=== PATIENT | male | born 1955 | race Caucasian/White ===

== ENCOUNTER 2018-06-27 07:18 | Observation (INO) ==
[2018-06-27] MEDS ORDERED: 0.9 % Sodium Chloride 1,000 ML IVC ONE (07:31)
[2018-06-27] MEDS ORDERED: *HR* FentaNYL (PF) 100 MCG/2 ML VIAL IVP ONE (07:31)
[2018-06-27] MEDS ORDERED: Ondansetron 4 MG/2 ML VIAL IVP ONE (07:31)
[2018-06-27] MEDS ORDERED: Isovue-370 500 ML INFUS..BTL IV ONE (07:31)
--- NOTE | 2018-06-27 07:36 | Emergency Department Note ---
Disposition Clinical Impression: Ileus, unspecified Disposition: Admitted As Inpatient Condition: Fair Referrals: NONE,PCP [Primary Care Provider] - Forms: ED Satisfaction Letter, Work/School Release Time of Disposition: 09:48 Abdominal Pain HPI - General Chief Complaint: ED Abdominal Pain Stated Complaint: Abd pain Time Seen by Provider: 06/27/18 07:25 Source: patient Mode of arrival: ambulatory Limitations: no limitations Nursing Notes Reviewed: Yes Vital Signs Reviewed: Yes - History of Present Illness HPI Narrative: Nontoxic-appearing 63-year-old male presents for evaluation of periumbilical pain that has began to radiate into the right lower quadrant, nausea, and vomiting. Symptoms began yesterday evening at approximately 8:00 PM. He denies any known alleviating factors. He states the pain is worse with certain move ments. He describes this pain as a cramping-type pain and states that it is intermittent in nature. It is worsened with certain movements. He states that although he has passed 2 normal bowel movements since symptom onset, he is unable to pass flatus. He states that it feels as if his symptoms would improve if he were able to pass gas. He denies any associated fever or chills. He denies any diarrhea. He denies any hematemesis or melena. He states that he has noticed some bright red blood per rectum intermittently for the past 2 days but does state a history of hemorrhoids. He denies any urinary symptoms. He denies any known sick contacts or recent foreign travel. His only abdominal surgical history includes a cholecystectomy performed approximately 10 years ago. Pt Subjective Complaint: abdominal pain Onset (ago): day(s) (Yesterday evening at approximately 8:00 PM) Consistency: intermittent Location: periumbilical Pain Severity: severe Pain Scale: 10 Quality: cramping Radiation: RLQ Improves with: nothing Worsens with: movement Associated symptoms: Reports: nausea, vomiting. Denies: diarrhea, fever, chills, constipation, dysuria, hematemesis, hematuria - Related Data Home Medications Medication Instructions Recorded Confirmed Alfuzosin HCl [Uroxatral] 10 mg PO ONCE 01/02/18 01/02/18 Alogliptin Benzoate [Alogliptin] 25 mg PO ONCE 01/02/18 01/02/18 Amlodipine Besylate 2.5 mg PO ONCE 01/02/18 01/02/18 Aspirin 325 mg PO DAILY 01/02/18 01/02/18 Atorvastatin Calcium [Lipitor] 20 mg PO ONCE 01/02/18 01/02/18 Enalapril Maleate [Vasotec] 10 mg PO ONCE 01/02/18 01/02/18 Insulin Glargine,Hum.rec.anlog 100 unit SQ BID 01/02/18 01/02/18 [Lantus Solostar] Montelukast Sodium [Singulair] 4 mg PO ONCE 01/02/18 01/02/18 Tamsulosin HCl [Flomax] 0.4 mg PO ONCE 01/02/18 01/02/18 glipiZIDE [Glipizide ER] 10 mg PO BID 01/02/18 01/02/18 raNITIdine HCl [Ranitidine HCl] 300 mg PO BID 01/02/18 01/02/18 Previous Rx's Medication Instructions Recorded Docusate [Colace] 100 mg PO BID #60 capsule 01/02/18 HYDROcodone/Acet 5/325 mg [[place] 1 tab PO Q4H PRN 4 Days #15 tab 01/02/18 5-325 mg] Allergies Allergy/AdvReac Type Severity Reaction Status Date / Time No Known Allergies Allergy Verified 01/02/18 10:38 All systems ED: reviewed and negative except as stated. Review of Systems: As Per HPI Constitutional: Denies: fever, chills, weakness, weight change Eyes: Denies: eye pain, eye discharge, vision change ENT ED: Denies: ear pain, throat pain, dental pain, hearing loss, epistaxis, congestion, dysphagia Cardiovascular: Denies: chest pain, palpitations, dyspnea on exertion, edema, syncope Respiratory: Denies: cough, dyspnea, wheezes, hemoptysis, stridor Gastrointestinal: Reports: as per HPI, abdominal pain, nausea, vomiting. Denies: diarrhea, constipation, hematemesis, melena, hematochezia Genitourinary: Denies: urgency, dysuria, frequency, hematuria Musculoskeletal: Denies: back pain, neck pain, arthralgia, myalgia Integumentary: Denies: rash, abrasion, lesions Neurological: Denies: headache, weakness, numbness, paresthesias, confusion, abnormal gait, vertigo Psychiatric: Denies: anxiety, depression, suicidal thoughts, homicidal thoughts, auditory hallucinations, visual hallucinations Endocrine: Denies: fatigue Hematological/Lymphatic: Denies: easy bleeding, easy bruising Allergic/Immunologic: Denies: facial swelling, urticaria Abdominal Pain PMH - Past Medical History Psychiatric history: Reports: no psych history - Social History Smoking status: Unknown if ever smoked Alcohol use: Reports: heavy Drug use: Reports: none Physical Exam - General Limitations: no limitations General appearance: alert, in no apparent distress - Head Head exam: atraumatic, normocephalic, normal inspection - Eye Eye exam: Present: normal appearance, PERRL, EOMI. Absent: nystagmus - ENT ENT exam: mucous membranes moist - Neck Neck exam: Present: normal inspection, full ROM - Chest Chest inspection: Present: normal inspection, symmetric chest wall rise - Respiratory Respiratory exam: Present: normal lung sounds bilaterally - Cardiovascular Cardiovascular exam: Present: regular rate, normal rhythm, normal heart sounds - Abdominal Exam Abdominal exam: Present: soft, tenderness, normal bowel sounds, psoas sign, tenderness at McBur[place]'s Point. Absent: distention, guarding, rebound, rigidity, organomegaly, trauma, heel tap sign, Rovsing's sign Abdominal tenderness: Present: RLQ (And periumbilical), mild - Rectal Exam Solution Design Engineer present during exam: Yes (WESLEY Santana) Rectal exam: Present: normal rectal tone, heme (+) stool. Absent: fecal impaction, hemorrhoids, mass, tenderness - Extremities Exam Extremities exam: Present: normal inspection, full ROM - Neurological Exam Neurological exam: Present: alert, oriented X3 - Psychiatric Psychiatric exam: Present: normal affect, normal mood - Skin Skin exam: Present: warm, dry, intact, normal color. Absent: rash Course - Reevaluation(s) Reevaluation #1: I spoke with Dr. Gleason, general surgeon regional sales leader. Dr. Vera recommends the in itiation of Cipro and Flagyl by IV piggyback. She also states that although the patient is passing stool, it is concerning that he is not able to pass gas. She does recommend insertion of an NG tube. She recommends admission to medicine and medicine can consult surgery if need be. [id number]: I spoke with the admitting hospitalist who has accepted the patient for admission to the hospitalist service. I discussed this patient's case with Dr. Laureano, ED attending. Dr. Laureano has had a [id number] evaluation with the patient and agrees with this plan. Time: 09:05 Vital Signs Temperature 98.3 F 06/27/18 07:21 Pulse Rate 89 06/27/18 07:21 Respiratory Rate 18 06/27/18 07:21 Blood Pressure 203/91 06/27/18 07:21 O2 Sat by Pulse Oximetry 96 06/27/18 07:21 Temperature 98.3 F 06/27/18 07:31 Pulse Rate 83 06/27/18 09:21 Respiratory Rate 17 06/27/18 09:21 Blood Pressure 139/81 06/27/18 09:21 O2 Sat by Pulse Oximetry 95 06/27/18 09:21 Oxygen Delivery Oxygen Delivery Room Air Abdominal Pain - Medical Records Medical records reviewed: Yes I reviewed the patient's medical records. - Lab Data Lab results reviewed: Yes I reviewed the patient's lab results. Lab results narrative: Lab Results 06/27/18 06/27/18 06/27/18 Range/Units 07:05 07:05 07:05 WBC 12.7 H (4.3-11.1) K/mcL RBC 5.13 (4.19-5.50) M/mcL Hgb 14.7 (12.9-16.9) g/dL Hct 45.2 (37.5-50.1) % MCV 88.1 (83.0-100.0) fL MCH 28.7 (28.0-33.3) pg MCHC 32.5 (31.6-35.5) g/dL RDW 13.2 (11.5-14.5) % Plt Count 293 (140-400) K/mcL MPV 9.2 L (9.4-12.4) fL Immature Gran % 0.4 (0-4) % Seg Neutrophils % 82.8 % Lymphocytes % 11.1 % Monocytes % 4.6 % Eosinophils % 0.6 % Basophils % 0.5 % Neutrophils # 10.5 H (1.6-8.9) K/mcL Lymphocytes # 1.4 (0.6-4.6) K/mcL Monocytes # 0.6 (0.0-1.3) K/mcL Eosinophils # 0.1 (0.0-0.6) K/mcL Basophils # 0.1 (0.0-0.2) K/mcL Sodium 134 L (136-145) mEq/L Potassium 4.3 (3.5-5.1) mEq/L Chloride 103 (98-107) mEq/L Carbon Dioxide 26 (23-29) mEq/L BUN 17 (8-23) mg/dL Creatinine 0.88 (0.70-1.30) mg/dL Est GFR ( Amer) > 60 (> 60) Est GFR (Non-Af Amer) > 60 (> 60) BUN/Creatinine Ratio 19 (6-26) Glucose 207 H (70-105) mg/dL Calculated Osmolality 286 (280-300) Lactic Acid 1.3 (0.5-2.2) mmol/L Calcium 9.5 (8.6-10.3) mg/dL Total Bilirubin 0.6 (0.3-1.0) mg/dL Direct Bilirubin 0.1 (0.0-0.2) mg/dL Indirect Bilirubin 0.5 (0.0-1.2) mg/dL AST 21 (13-39) Units/L ALT 28 (7-52) Units/L Alkaline Phosphatase 67 (34-104) Units/L Serum Total Protein 7.4 (6.4-8.9) g/dL Albumin 4.2 (3.5-5.7) g/dL Globulin 3.2 (2.4-3.5) g/dL Albumin/Globulin Ratio 1.3 (1.1-2.2) Amylase 22 L (29-103) Units/L Lipase 15 (11-82) Units/L Urine Color (Yellow) Urine Clarity (Clear) Urine pH (5.0-8.0) pH Units Ur Specific [place] (1.010-1.025) Urine Protein (Neg-Trace) mg/dL Urine Glucose (UA) (Normal) mg/dL Urine Ketones (Negative) mg/dL Urine Blood (Negative) Urine Nitrite (Negative) Urine Bilirubin (Negative) Urine Urobilinogen (Normal) mg/dL Ur Leukocyte Esterase (Negative) Ur Culture Indicated? (NO) 06/27/18 Range/Units 08:44 WBC (4.3-11.1) K/mcL RBC (4.19-5.50) M/mcL Hgb (12.9-16.9) g/dL Hct (37.5-50.1) % MCV (83.0-100.0) fL MCH (28.0-33.3) pg MCHC (31.6-35.5) g/dL RDW (11.5-14.5) % Plt Count (140-400) K/mcL MPV (9.4-12.4) fL Immature Gran % (0-4) % Seg Neutrophils % % Lymphocytes % % Monocytes % % Eosinophils % % Basophils % % Neutrophils # (1.6-8.9) K/mcL Lymphocytes # (0.6-4.6) K/mcL Monocytes # (0.0-1.3) K/mcL Eosinophils # (0.0-0.6) K/mcL Basophils # (0.0-0.2) K/mcL Sodium (136-145) mEq/L Potassium (3.5-5.1) mEq/L Chloride (98-107) mEq/L Carbon Dioxide (23-29) mEq/L BUN (8-23) mg/dL Creatinine (0.70-1.30) mg/dL Est GFR ( Amer) (> 60) Est GFR (Non-Af Amer) (> 60) BUN/Creatinine Ratio (6-26) Glucose (70-105) mg/dL Calculated Osmolality (280-300) Lactic Acid (0.5-2.2) mmol/L Calcium (8.6-10.3) mg/dL Total Bilirubin (0.3-1.0) mg/dL Direct Bilirubin (0.0-0.2) mg/dL Indirect Bilirubin (0.0-1.2) mg/dL AST (13-39) Units/L ALT (7-52) Units/L Alkaline Phosphatase (34-104) Units/L Serum Total Protein (6.4-8.9) g/dL Albumin (3.5-5.7) g/dL Globulin (2.4-3.5) g/dL Albumin/Globulin Ratio (1.1-2.2) Amylase (29-103) Units/L Lipase (11-82) Units/L Urine Color Yellow (Yellow) Urine Clarity Clear (Clear) Urine pH 7.0 (5.0-8.0) pH Units Ur Specific [place] > 1.030 H (1.010-1.025) Urine Protein Negative (Neg-Trace) mg/dL Urine Glucose (UA) Normal (Normal) mg/dL Urine Ketones Negative (Negative) mg/dL Urine Blood Negative (Negative) Urine Nitrite Negative (Negative) Urine Bilirubin Negative (Negative) Urine Urobilinogen Normal (Normal) mg/dL Ur Leukocyte Esterase Negative (Negative) Ur Culture Indicated? NO (NO) Result diagrams: 06/27/18 07:05 06/27/18 07:05 Lab Results 06/27/18 06/27/18 06/27/18 Range/Units 07:05 07:05 07:05 WBC 12.7 H (4.3-11.1) K/mcL RBC 5.13 (4.19-5.50) M/mcL Hgb 14.7 (12.9-16.9) g/dL Hct 45.2 (37.5-50.1) % MCV 88.1 (83.0-100.0) fL MCH 28.7 (28.0-33.3) pg MCHC 32.5 (31.6-35.5) g/dL RDW 13.2 (11.5-14.5) % Plt Count 293 (140-400) K/mcL MPV 9.2 L (9.4-12.4) fL Immature Gran % 0.4 (0-4) % Seg Neutrophils % 82.8 % Lymphocytes % 11.1 % Monocytes % 4.6 % Eosinophils % 0.6 % Basophils % 0.5 % Neutrophils # 10.5 H (1.6-8.9) K/mcL Lymphocytes # 1.4 (0.6-4.6) K/mcL Monocytes # 0.6 (0.0-1.3) K/mcL Eosinophils # 0.1 (0.0-0.6) K/mcL Basophils # 0.1 (0.0-0.2) K/mcL Sodium 134 L (136-145) mEq/L Potassium 4.3 (3.5-5.1) mEq/L Chloride 103 (98-107) mEq/L Carbon Dioxide 26 (23-29) mEq/L BUN 17 (8-23) mg/dL Creatinine 0.88 (0.70-1.30) mg/dL Est GFR ( Amer) > 60 (> 60) Est GFR (Non-Af Amer) > 60 (> 60) BUN/Creatinine Ratio 19 (6-26) Glucose 207 H (70-105) mg/dL Calculated Osmolality 286 (280-300) Lactic Acid 1.3 (0.5-2.2) mmol/L Calcium 9.5 (8.6-10.3) mg/dL Total Bilirubin 0.6 (0.3-1.0) mg/dL Direct Bilirubin 0.1 (0.0-0.2) mg/dL Indirect Bilirubin 0.5 (0.0-1.2) mg/dL AST 21 (13-39) Units/L ALT 28 (7-52) Units/L Alkaline Phosphatase 67 (34-104) Units/L Serum Total Protein 7.4 (6.4-8.9) g/dL Albumin 4.2 (3.5-5.7) g/dL Globulin 3.2 (2.4-3.5) g/dL Albumin/Globulin Ratio 1.3 (1.1-2.2) Amylase 22 L (29-103) Units/L Lipase 15 (11-82) Units/L Urine Color (Yellow) Urine Clarity (Clear) Urine pH (5.0-8.0) pH Units Ur Specific [place] (1.010-1.025) Urine Protein (Neg-Trace) mg/dL Urine Glucose (UA) (Normal) mg/dL Urine Ketones (Negative) mg/dL Urine Blood (Negative) Urine Nitrite (Negative) Urine Bilirubin (Negative) Urine Urobilinogen (Normal) mg/dL Ur Leukocyte Esterase (Negative) Ur Culture Indicated? (NO) 06/27/18 Range/Units 08:44 WBC (4.3-11.1) K/mcL RBC (4.19-5.50) M/mcL Hgb (12.9-16.9) g/dL Hct (37.5-50.1) % MCV (83.0-100.0) fL MCH (28.0-33.3) pg MCHC (31.6-35.5) g/dL RDW (11.5-14.5) % Plt Count (140-400) K/mcL MPV (9.4-12.4) fL Immature Gran % (0-4) % Seg Neutrophils % % Lymphocytes % % Monocytes % % Eosinophils % % Basophils % % Neutrophils # (1.6-8.9) K/mcL Lymphocytes # (0.6-4.6) K/mcL Monocytes # (0.0-1.3) K/mcL Eosinophils # (0.0-0.6) K/mcL Basophils # (0.0-0.2) K/mcL Sodium (136-145) mEq/L Potassium (3.5-5.1) mEq/L Chloride (98-107) mEq/L Carbon Dioxide (23-29) mEq/L BUN (8-23) mg/dL Creatinine (0.70-1.30) mg/dL Est GFR ( Amer) (> 60) Est GFR (Non-Af Amer) (> 60) BUN/Creatinine Ratio (6-26) Glucose (70-105) mg/dL Calculated Osmolality (280-300) Lactic Acid (0.5-2.2) mmol/L Calcium (8.6-10.3) mg/dL Total Bilirubin (0.3-1.0) mg/dL Direct Bilirubin (0.0-0.2) mg/dL Indirect Bilirubin (0.0-1.2) mg/dL AST (13-39) Units/L ALT (7-52) Units/L Alkaline Phosphatase (34-104) Units/L Serum Total Protein (6.4-8.9) g/dL Albumin (3.5-5.7) g/dL Globulin (2.4-3.5) g/dL Albumin/Globulin Ratio (1.1-2.2) Amylase (29-103) Units/L Lipase (11-82) Units/L Urine Color Yellow (Yellow) Urine Clarity Clear (Clear) Urine pH 7.0 (5.0-8.0) pH Units Ur Specific [place] > 1.030 H (1.010-1.025) Urine Protein Negative (Neg-Trace) mg/dL Urine Glucose (UA) Normal (Normal) mg/dL Urine Ketones Negative (Negative) mg/dL Urine Blood Negative (Negative) Urine Nitrite Negative (Negative) Urine Bilirubin Negative (Negative) Urine Urobilinogen Normal (Normal) mg/dL Ur Leukocyte Esterase Negative (Negative) Ur Culture Indicated? NO (NO) - Radiology Data Radiology results reviewed: Yes I reviewed the patient's radiology results. Abdomen/Pelvis CT 06/27/18 07:31 IMPRESSION: Fluid-filled and mildly prominent small bowel loops with gradual transition in the distal ileum. Mild wall enhancement and mesenteric inflammation surrounding the distal ileum. Combination of findings favors small bowel enteritis and ileus. Developing/partial small bowel obstruction is considered unlikely. No free air or fluid. Previously described filling defect within the urinary bladder is not clearly visualized on current examination as delayed images were not obtained on the current examination. D/ / Philippe Banks MD / Philippe Banks MD Interpreting Provider: Philippe Banks MD Attestation Statement - Attestation Attestation: Medical screening examination/treatment/procedure(s) were conducted as a shared visit with non-physician practitioner(s) and myself. I personally evaluated the patient during the encounter. Previous history of cholecystectomy presenting for evaluation of umbilical pain, distention, nausea and vomiting with pain throughout the lower abdomen worse on the left lower quadrant in the right lower quadrant without guarding or rebound. Blood work ordered with mild leukcocytosis. CAT scan pending. Nausea is the biggest complaint on my evaluation, further nausea medications with Reglan have been ordered.
[2018-06-27 08:00] LABS: Basophils # 0.1 K/mcL (0.0-0.2); Basophils % 0.5 %; Eosinophils # 0.1 K/mcL (0.0-0.6); Eosinophils % 0.6 %; Hematocrit 45.2 % (37.5-50.1); Hemoglobin 14.7 g/dL (12.9-16.9); Immature Granulocytes % 0.4 % (0-4); Lymphocytes # 1.4 K/mcL (0.6-4.6); Lymphocytes % 11.1 %; Mean Corpuscular HGB Conc 32.5 g/dL (31.6-35.5); Mean Corpuscular Hemoglobin 28.7 pg (28.0-33.3); Mean Corpuscular Volume 88.1 fL (83.0-100.0); Mean Platelet Volume 9.2 fL (9.4-12.4); Monocytes # 0.6 K/mcL (0.0-1.3); Monocytes % 4.6 %; Neutrophils # 10.5 K/mcL (1.6-8.9); Platelet Count 293 K/mcL (140-400); Red Blood Count 5.13 M/mcL (4.19-5.50); Red Cell Distribution Width 13.2 % (11.5-14.5); Segmented Neutrophils % 82.8 %
[2018-06-27 08:19] LABS: Alanine Aminotransferase 28 Units/L (7-52); Albumin 4.2 g/dL (3.5-5.7); Albumin/Globulin Ratio 1.3 (1.1-2.2); Alkaline Phosphatase 67 Units/L (34-104); Amylase 22 Units/L (29-103); Aspartate Amino Transferase 21 Units/L (13-39); BUN/Creatinine Ratio 19 (6-26); Bilirubin,Direct 0.1 mg/dL (0.0-0.2); Bilirubin,Indirect 0.5 mg/dL (0.0-1.2); Bilirubin,Total 0.6 mg/dL (0.3-1.0); Blood Urea Nitrogen 17 mg/dL (8-23); Calcium 9.5 mg/dL (8.6-10.3); Carbon Dioxide 26 mEq/L (23-29); Chloride 103 mEq/L (98-107); Globulin 3.2 g/dL (2.4-3.5); Glucose 207 mg/dL (70-105); Lipase 15 Units/L (11-82); Osmolality,Calculated 286 (280-300); Potassium 4.3 mEq/L (3.5-5.1); Sodium 134 mEq/L (136-145); Total Protein 7.4 g/dL (6.4-8.9); eGFR For Non-African Americans > 60 (> 60)
[2018-06-27] MEDS ORDERED: Metoclopramide 10 MG/2 ML VIAL IVP STA (08:29)
[2018-06-27 09:02] LABS: Bilirubin,Urine Negative (Negative); Blood,Urine Negative (Negative); Clarity,Urine Clear (Clear); Color,Urine Yellow (Yellow); Glucose,Urine (UA) Normal (Normal); Ketones,Urine Negative (Negative); Leukocyte Esterase,Urine Negative (Negative); Nitrite,Urine Negative (Negative); Protein,Urine Negative (Neg-Trace); Specific Gravity,Urine > 1.030 (1.010-1.025); Urobilinogen,Urine Normal (Normal)
[2018-06-27] MEDS ORDERED: MetroNIDAZOLE 500 MG/100 ML 500 MG/100 ML BAG IVPB ONE (09:20)
--- NOTE | 2018-06-27 10:28 | Internal Med History&Physical ---
<Chon Abernathy - Last Filed: 06/27/18 10:26> Date of Encounter: 06/27/18 Time of Encounter: 10:26 Internal Medicine - H&P: HPI Chief complaint: Abdominal pain Admitted From: Home Plans for Post Hospital Care: Home History of present illness: Mr. Rasheed is a 63 year old male with no medical history of morbid obesity, type 2 diabetes, BPH and suspected sleep apnea presented to the emergency department with abdominal pain nausea and vomiting. Mr. Rasheed states that yesterday evening around 8 PM he started having abdominal fullness, pain is epigastric region, nausea vomiting that was not relenting. He denies ever having symptoms like this prior. He had been eating normally with a full dinner several hours prior. He been having bowel movements with 1 around 8 PM when the onset of pain began. He denies any fevers, chills, diaphoresis, chest pains or shortness of breath, change in urination or bowel movements that would be new to him. He states that he has been having hard large stools for many months with streaks of blood in them. His last colonoscopy was 10 years ago and denies any polyps or concerning findings. He was due to have another colonoscopy but has not yet scheduled this. He denies any other symptoms. He did have a history of cholecystectomy many years ago and a recent BPH procedure performed by urology. He did not take any medications at home for these symptoms. He had roughly 4 episodes of vomiting and his last bowel movement at 4 AM this morning streaks of blood. Past Med Surg Social Fam HX - Past Medical History Medical history: hypertension Additional medical history: SLEEP APNEA. BPH Psychiatric history: no psych history - Social History Smoking Status: Unknown if ever smoked Smokeless Tobacco Status: No Alcohol use: heavy Drug use: none Internal Medicine - H&P: Meds Alfuzosin HCl [Uroxatral] 10 mg PO ONCE 01/02/18 [History] Alogliptin Benzoate [Alogliptin] 25 mg PO ONCE 01/02/18 [History] Aspirin 325 mg PO DAILY 01/02/18 [History] Atorvastatin Calcium [Lipitor] 20 mg PO ONCE 01/02/18 [History] Enalapril Maleate [Vasotec] 10 mg PO ONCE 01/02/18 [History] Tamsulosin HCl [Flomax] 0.4 mg PO ONCE 01/02/18 [History] raNITIdine HCl [Ranitidine HCl] 300 mg PO BID 01/02/18 [History] Insulin Degludec [Tresiba Flextouch U-200] 90 unit SQ BID 06/27/18 [History] Montelukast [Singulair] 10 mg PO DAILY 06/27/18 [History] glipiZIDE [Glipizide] 10 mg PO BID 06/27/18 [History] Allergy/AdvReac Type Severity Reaction Status Date / Time No Known Allergies Allergy Verified 06/27/18 10:24 All Systems PM: A 10-system review of systems was performed and is negative for pertinent findings except as documented above in the HPI. Review of systems: Positive for abdominal pain, abdominal distention, nausea, vomiting, belching, hard stools, blood streaks in stools Denies change in vision, blurry vision, chest pain, shortness of breath, palpitations, diarrhea, urinary changes, blood in his urine, lower STEMI swelling, neuropathy, weakness in any of extremities. - Constitutional Vitals: Temp Pulse Resp BP Pulse Ox 98.3 F 83 17 139/81 95 06/27/18 07:31 06/27/18 09:21 06/27/18 09:21 06/27/18 09:21 06/27/18 09:21 Exam: Gen. alert awake oriented interactive in no acute distress with NG tube in right naris HEENT normocephalic, atraumatic, pupils equal reactive, oral mucosa dry, nasal cavity with NG tube on suction and right near, neck supple trachea midline, moderate sized lipoma on the right Inframandibular region. Chest symmetric bilateral correlating with respiratory effort Cardiac regular rate rhythm positive S1-S2 no murmurs or gallops appreciated, radial pulses 2+ bilateral, posterior tibial pulses 2+ bilateral Respiratory clear to auscultation bilateral Abdomen distended, tympanic, positive bowel sounds, tenderness to even light palpation. Extremities symmetric bilateral, patient moving all 4 spontaneously without any erythema or edema noted. Internal Med - H&P Results - Labs CBC & Chem 7: 06/27/18 07:05 06/27/18 07:05 Labs: Short CBC 06/27/18 Range/Units 07:05 WBC 12.7 H (4.3-11.1) K/mcL Hgb 14.7 (12.9-16.9) g/dL Hct 45.2 (37.5-50.1) % Plt Count 293 (140-400) K/mcL Neutrophils # 10.5 H (1.6-8.9) K/mcL BMP 06/27/18 07:05 Sodium 134 L Potassium 4.3 Chloride 103 Carbon Dioxide 26 BUN 17 Creatinine 0.88 Glucose 207 H Calcium 9.5 Liver Function 06/27/18 Range/Units 07:05 Total Bilirubin 0.6 (0.3-1.0) mg/dL Direct Bilirubin 0.1 (0.0-0.2) mg/dL AST 21 (13-39) Units/L ALT 28 (7-52) Units/L Alkaline Phosphatase 67 (34-104) Units/L Albumin 4.2 (3.5-5.7) g/dL Urine 06/27/18 Range/Units 08:44 Urine Color Yellow (Yellow) Urine Clarity Clear (Clear) Urine pH 7.0 (5.0-8.0) pH Units Ur Specific [place] > 1.030 H (1.010-1.025) Urine Protein Negative (Neg-Trace) mg/dL Urine Glucose (UA) Normal (Normal) mg/dL - Impressions ITS Impressions Abdomen/Pelvis CT 06/27/18 07:31 IMPRESSION: Fluid-filled and mildly prominent small bowel loops with gradual transition in the distal ileum. Mild wall enhancement and mesenteric inflammation surrounding the distal ileum. Combination of findings favors small bowel enteritis and ileus. Developing/partial small bowel obstruction is considered unlikely. No free air or fluid. Previously described filling defect within the urinary bladder is not clearly visualized on current examination as delayed images were not obtained on the current examination. D/ / Philippe Banks MD / Philippe Banks MD Interpreting Provider: Philippe Banks MD - Assessment and plan (1) Ileus, unspecified Current Visit: Yes Status: Acute Assessment and plan: 63-year-old male with abdominal pain, distention, nausea vomiting. CT demonstrated fluid and gas filled bowel loops, read as unlikely to be small bowel obstruction at this time. - Patient received an NG tube on suction in the emergency department - Received Zofran and Reglan - Last bowel movement at 4 AM this morning. Laboratory results: Amylase 22, lipase 15, AST ALTs normal, alkaline phosphatase normal, bilirubin direct and indirect normal, lactic acid 1.3, renal function stable. WBC 12.7, vitals stable and appropriate. Plan: - Continue NG tube with suction, consider discontinuing if output is poor - Zofran when necessary - Continue Flagyl and ciprofloxacin - Pain control with tramadol, Tylenol, lidocaine spray - Nothing by mouth - ER spoke with general surgery but no formal consult at this time. (2) Alcohol use disorder Current Visit: Yes Status: Acute Assessment and plan: Patient admits to 3 drinks per night, each drink is a double shot of alcohol - Patient denies any history of withdrawal symptoms, confirms - We will monitor patient's symptoms, will not start seawall protocol at this time unless patient starts demonstrating initial concerning symptoms. (3) Diabetes mellitus type 2 in obese Current Visit: Yes Status: Acute Assessment and plan: Patient is morbidly obese, known insulin-dependent type 2 diabetic - Every six-hour glucose checks - Low-dose sliding scale insulin (4) DVT prophylaxis Current Visit: Yes Status: Acute Assessment and plan: Lovenox 40 mg daily (5) Suspected sleep apnea Current Visit: Yes Status: Acute Assessment and plan: Patient complains of fatigue throughout the day and frequent sleepiness episodes. - states that he snores frequently with frequent episodes of apnea at night - Patient is morbidly obese with large neck girth - We will place on oximeter at night while sleeping to monitor oxygen saturations. - Patient would benefit with outpatient sleep study - Time Spent With Patient Total time spent is greater than 50% in coordination of care (as documented) at patient's floor/unit and/or counseling patient: <[email or web address] - Last Filed: 06/27/18 12:56> Date of Encounter: 06/27/18 Time of Encounter: 12:49 Internal Medicine - H&P: HPI Admitted From: Emergency Dept Plans for Post Hospital Care: Home History of present illness: Mr. Rasheed is a 63 year old male Past Med Surg Social Fam HX - Additional Family History Additional family history: Family history reviewed and found to be noncontributo ry at this time All Systems PM: A 10-system review of systems was performed and is negative for pertinent findings except as documented above in the HPI. - Constitutional Vitals: Temp Pulse Resp BP Pulse Ox 98.3 F 83 18 159/86 95 06/27/18 07:31 06/27/18 09:21 06/27/18 10:31 06/27/18 10:31 06/27/18 09:21 Internal Med - H&P Results - Labs CBC & Chem 7: 06/27/18 07:05 06/27/18 07:05 Labs: Short CBC 06/27/18 Range/Units 07:05 WBC 12.7 H (4.3-11.1) K/mcL Hgb 14.7 (12.9-16.9) g/dL Hct 45.2 (37.5-50.1) % Plt Count 293 (140-400) K/mcL Neutrophils # 10.5 H (1.6-8.9) K/mcL BMP 06/27/18 07:05 Sodium 134 L Potassium 4.3 Chloride 103 Carbon Dioxide 26 BUN 17 Creatinine 0.88 Glucose 207 H Calcium 9.5 Liver Function 06/27/18 Range/Units 07:05 Total Bilirubin 0.6 (0.3-1.0) mg/dL Direct Bilirubin 0.1 (0.0-0.2) mg/dL AST 21 (13-39) Units/L ALT 28 (7-52) Units/L Alkaline Phosphatase 67 (34-104) Units/L Albumin 4.2 (3.5-5.7) g/dL Urine 06/27/18 Range/Units 08:44 Urine Color Yellow (Yellow) Urine Clarity Clear (Clear) Urine pH 7.0 (5.0-8.0) pH Units Ur Specific [place] > 1.030 H (1.010-1.025) Urine Protein Negative (Neg-Trace) mg/dL Urine Glucose (UA) Normal (Normal) mg/dL - Impressions ITS Impressions Abdomen/Pelvis CT 06/27/18 07:31 IMPRESSION: Fluid-filled and mildly prominent small bowel loops with gradual transition in the distal ileum. Mild wall enhancement and mesenteric inflammation surrounding the distal ileum. Combination of findings favors small bowel enteritis and ileus. Developing/partial small bowel obstruction is considered unlikely. No free air or fluid. Previously described filling defect within the urinary bladder is not clearly visualized on current examination as delayed images were not obtained on the current examination. D/ / Philippe Banks MD / Philippe Banks MD Interpreting Provider: Philippe Banks MD X-Ray 06/27/18 12:07 IMPRESSION: 1. The NG tube tip and side port are noted in the gastric fundus. 2. Mild pulmonary vascular congestion. D/ / Broderick De La Rosa MD / Broderick De La Rosa MD Interpreting Provider: Broderick De La Rosa MD - Assessment and plan (1) Ileus, unspecified Current Visit: Yes Status: Acute (2) Alcohol use disorder Current Visit: Yes Status: Acute (3) Diabetes mellitus type 2 in obese Current Visit: Yes Status: Acute (4) DVT prophylaxis Current Visit: Yes Status: Acute (5) Suspected sleep apnea Current Visit: Yes Status: Acute - Time Spent With Patient Total time spent is greater than 50% in coordination of care (as documented) at patient's floor/unit and/or counseling patient: - Attending Attestation I saw evaluated and examined this patient and my medical decision-making was re viewed with the Resident Physician, Chon Abernathy. I agree with the documented findings, disposition and treatment plan as described except to any changes set forth below. We independently had [id number] contact with the patient. 63-year-old male patient with history of type 2 diabetes, BPH, hypertension presented to the ER with complaints of abdominal pain along with nausea and vomiting. She reports that symptoms started last evening. Initially began as pain in his abdomen which was cramping and intermittent but severe. He then began to have emesis. He has had about 4 episodes of emesis since then and he had another episode after coming to the floor here. He has chronic constipation and hard stools along with streaking of blood in his stools. He denies any hematemesis. Nasogastric tube was placed in the ER with some relief of his abdominal pain initially. He however has had the pain returned intermittently along with cramping. General: Patient is alert, no acute distress, oriented x 3 Head: atraumatic, normocephalic, ENT: NG tube in place Chest: normal inspection, symmetric chest rise Respiratory: Good respiratory effort. Normal breath sounds. No wheezing or crackles. Cardiovascular: Regular rate and rhythm. s1 and s2 normal No clicks, rubs, gallops, or murmurs. No pedal edema Abdomen: Abdomen is soft, distended, tender Bowel sounds are hypoactive Musculoskeletal: Spontaneously moving all extremities Skin: warm, dry, intact. Neuro: Alert oriented x 3 normal cranial nerves, no focal deficits CT scan of the abdomen and pelvis showed ileitis/small bowel enteritis Acute abdominal pain and distention with ileitis/enteritis: Treat symptomatically. Keep nothing by mouth. Bowel rest. NG tube to low intermittent suction. No signs of obstruction at this time. Patient did have a bowel movement earlier this morning. Empiric antibiotics. If symptoms do not improve, consult surgery. Diabetes mellitus type 2: Monitor sugars. Sliding scale insulin. Chronic alcohol use: Monitor for signs of withdrawal. Patient drinks about has 3 drinks of alcohol per night. If patient develops symptoms of withdrawal, we will place him on CIWA protocol. Possible obstructive sleep apnea: Patient reports snoring at night and generalized malaise and tiredness during the day. Recommend sleep study as outpatient. DVT prophylaxis with subcutaneous Lovenox.
[2018-06-27] MEDS ORDERED: Naloxone 0.4 MG/ML INJ IVP PRN (10:34)
[2018-06-27] MEDS ORDERED: Acetaminophen 325 MG TABLET PO PRN (10:34)
[2018-06-27] MEDS ORDERED: traMADol 50 MG TABLET PO PRN (10:34)
[2018-06-27] MEDS ORDERED: Pantoprazole 40 MG VIAL IVP ONE (10:36)
[2018-06-27] MEDS ORDERED: D5% in Water 1,000 ML IVC PRN (10:37)
[2018-06-27] MEDS ORDERED: Dextrose Gel 15 GM/37.5 ML TUBE PO PRN ×2 (10:37)
[2018-06-27] MEDS ORDERED: *HR* Dextrose 50 % in Water (Syg) 50 ML SYRINGE IVP PRN (10:37)
[2018-06-27] MEDS: 0.9 % Sodium Chloride 1,000 ML IVC SCH ×2 (11:50→20:58)
[2018-06-27 12:40] LABS: Estimated Average Glucose 194 mg/dl; Hemoglobin A1C 8.4 %
[2018-06-27] MEDS: Ondansetron 4 MG/2 ML VIAL IVP SCH ×2 (12:46→17:38)
[2018-06-27] MEDS: Insulin LISPRO 300 UNITS/3 ML VIAL SQ SCH ×2 (12:46→17:38)
[2018-06-27] MEDS: MetroNIDAZOLE 500 MG/100 ML 500 MG/100 ML BAG IVPB SCH (17:36)
[2018-06-27] MEDS: Insulin DETEMIR 100 UNIT/ML X5UNITS SQ SCH (22:28)
[2018-06-28] MEDS: Insulin LISPRO 300 UNITS/3 ML VIAL SQ SCH ×4 (00:53→18:26)
[2018-06-28] MEDS: MetroNIDAZOLE 500 MG/100 ML 500 MG/100 ML BAG IVPB SCH ×3 (00:54→17:07)
[2018-06-28] MEDS: Ondansetron 4 MG/2 ML VIAL IVP SCH ×4 (00:54→18:11)
[2018-06-28 03:27] LABS: Basophils # 0.1 K/mcL (0.0-0.2); Basophils % 0.4 %; Eosinophils # 0.2 K/mcL (0.0-0.6); Eosinophils % 1.8 %; Hematocrit 40.7 % (37.5-50.1); Hemoglobin 13.3 g/dL (12.9-16.9); Immature Granulocytes % 0.3 % (0-4); Lymphocytes # 3.1 K/mcL (0.6-4.6); Lymphocytes % 24.1 %; Mean Corpuscular HGB Conc 32.7 g/dL (31.6-35.5); Mean Corpuscular Hemoglobin 29.6 pg (28.0-33.3); Mean Corpuscular Volume 90.4 fL (83.0-100.0); Mean Platelet Volume 9.1 fL (9.4-12.4); Monocytes % 7.8 %; Neutrophils # 8.6 K/mcL (1.6-8.9); Platelet Count 263 K/mcL (140-400); Red Cell Distribution Width 13.4 % (11.5-14.5); Segmented Neutrophils % 65.6 %
[2018-06-28 03:47] LABS: Alanine Aminotransferase 21 Units/L (7-52); Albumin 3.6 g/dL (3.5-5.7); Albumin/Globulin Ratio 1.3 (1.1-2.2); Alkaline Phosphatase 56 Units/L (34-104); Aspartate Amino Transferase 17 Units/L (13-39); BUN/Creatinine Ratio 14 (6-26); Bilirubin,Total 0.5 mg/dL (0.3-1.0); Blood Urea Nitrogen 15 mg/dL (8-23); Calcium 8.5 mg/dL (8.6-10.3); Carbon Dioxide 25 mEq/L (23-29); Chloride 106 mEq/L (98-107); Globulin 2.8 g/dL (2.4-3.5); Glucose 120 mg/dL (70-105); Magnesium 1.9 mg/dL (1.6-2.6); Osmolality,Calculated 290 (280-300); Phosphorous 2.1 mg/dL (2.7-4.5); Potassium 3.7 mEq/L (3.5-5.1); Sodium 139 mEq/L (136-145); Total Protein 6.4 g/dL (6.4-8.9); eGFR For Non-African Americans > 60 (> 60)
[2018-06-28] MEDS: *HR* Enoxaparin 40 MG/0.4 ML SYRINGE SQ SCH (05:36)
[2018-06-28] MEDS: Pantoprazole 40 MG VIAL IVP SCH (09:00)
[2018-06-28] MEDS ORDERED: Chloraseptic Spray 177 ML BOTTLE MM PRN (11:39)
--- NOTE | 2018-06-28 13:28 | Internal Med Progress Note ---
Hospitalist Progress Note - Encounter Date of Encounter: 06/28/18 Time of Encounter: 11:19 - Subjective Interval History: Seen and examined this morning at bedside. No acute overnight events. Had bowel movement yesterday. Passing gas. Complains of pain in his nose from the NG tube. 550 mL of NG output documented. Patient with no abdominal pain. W ants to eat. - Exam Vitals: Temp Pulse Resp BP Pulse Ox 98.1 F 63 16 147/72 95 06/28/18 12:44 06/28/18 12:44 06/28/18 12:44 06/28/18 12:44 06/28/18 12:44 Exam: General: In no acute distress. Conversant. Obese. NGT in place Respiratory exam: CTAB. no accessory muscle use, rales, rhonchi, wheezes Cardiovascular exam: RRR, +S1, +S2. no murmur, gallop, rubs. GI/Abdominal exam: Obese, Non-distended, Non-tender normal bowel sounds, soft, no peritoneal signs. Extremities exam: full ROM, no pedal edema, warm, pulses palpable in b/l lower extremities. no calf tenderness Neurological exam: CN II-XII intact, AO X3, no focal deficits. no pronater drift, facial droop, speech deficit Skin exam: No skin rash, ulcer, purpura or ecchymosis. - Assessment and Plan (1) Ileus, unspecified Current Visit: Yes Status: Acute (2) Alcohol use disorder Current Visit: Yes Status: Acute (3) Diabetes mellitus type 2 in obese Current Visit: Yes Status: Acute (4) DVT prophylaxis Current Visit: Yes Status: Acute (5) Suspected sleep apnea Current Visit: Yes Status: Acute - Summary of Assessment and Plan Summary of Assessment and Plan: Ileus - CT with enteritis and ileus - NO electrolyte abnormality. - Had BM yesterday. Passing gas - DC NGT. Will try liquid diet - Zofran prn - Continue Flagyl and ciprofloxacin Alcohol use disorder - Monitor for withdrawal. Diabetes mellitus type 2 in obese - c/w accuchecks and sliding scale DVT prophylaxis - Lovenox 40 mg daily Suspected sleep apnea - f/u outpatient sleep study - Time Spent with Patient Total time spent is greater than 50% in coordination of care (as documented) at patient's floor/unit and/or counseling patient: Internal Medicine: Result - Labs CBC & Chem 7: 06/28/18 03:12 06/28/18 03:12 Labs: Short CBC 06/28/18 Range/Units 03:12 WBC 13.0 H (4.3-11.1) K/mcL Hgb 13.3 (12.9-16.9) g/dL Hct 40.7 (37.5-50.1) % Plt Count 263 (140-400) K/mcL Neutrophils # 8.6 (1.6-8.9) K/mcL BMP 06/28/18 03:12 Sodium 139 Potassium 3.7 Chloride 106 Carbon Dioxide 25 BUN 15 Creatinine 1.05 Glucose 120 H Calcium 8.5 L Liver Function 06/28/18 Range/Units 03:12 Total Bilirubin 0.5 (0.3-1.0) mg/dL AST 17 (13-39) Units/L ALT 21 (7-52) Units/L Alkaline Phosphatase 56 (34-104) Units/L Albumin 3.6 (3.5-5.7) g/dL - Impressions Impressions [facility] X-Ray 06/27/18 12:07 IMPRESSION: 1. The NG tube tip and side-port are noted in the gastric fundus. 2. Mild pulmonary vascular congestion. D/ / 06/27/2018 12:58:12 Broderick De La Rosa MD / [facility] Interpreting Provider: Broderick De La Rosa MD Consult Discharge Plan - Plan Referrals: NONE,PCP [Primary Care Provider] -
[2018-06-28] MEDS ORDERED: *HR* Dextrose 50 % in Water (Syg) 50 ML SYRINGE IVP PRN (18:28)
[2018-06-28] MEDS ORDERED: D5% in Water 1,000 ML IVC PRN (18:28)
[2018-06-28] MEDS ORDERED: Dextrose Gel 15 GM/37.5 ML TUBE PO PRN (18:28)
[2018-06-28] MEDS: Insulin DETEMIR 100 UNIT/ML X5UNITS SQ SCH (21:50)
[2018-06-29] MEDS: MetroNIDAZOLE 500 MG/100 ML 500 MG/100 ML BAG IVPB SCH ×2 (00:33→09:00)
[2018-06-29 01:38] LABS: Basophils # 0.1 K/mcL (0.0-0.2); Basophils % 0.6 %; Eosinophils # 0.3 K/mcL (0.0-0.6); Eosinophils % 2.7 %; Hematocrit 37.8 % (37.5-50.1); Hemoglobin 12.6 g/dL (12.9-16.9); Immature Granulocytes % 0.2 % (0-4); Lymphocytes # 2.6 K/mcL (0.6-4.6); Lymphocytes % 24.6 %; Mean Corpuscular HGB Conc 33.3 g/dL (31.6-35.5); Mean Corpuscular Hemoglobin 29.6 pg (28.0-33.3); Mean Corpuscular Volume 88.9 fL (83.0-100.0); Mean Platelet Volume 9.1 fL (9.4-12.4); Monocytes # 0.9 K/mcL (0.0-1.3); Monocytes % 8.1 %; Neutrophils # 6.8 K/mcL (1.6-8.9); Platelet Count 218 K/mcL (140-400); Red Blood Count 4.25 M/mcL (4.19-5.50); Red Cell Distribution Width 13.7 % (11.5-14.5); Segmented Neutrophils % 63.8 %
[2018-06-29 01:56] LABS: BUN/Creatinine Ratio 13 (6-26); Blood Urea Nitrogen 14 mg/dL (8-23); Calcium 8.4 mg/dL (8.6-10.3); Carbon Dioxide 26 mEq/L (23-29); Chloride 106 mEq/L (98-107); Glucose 134 mg/dL (70-105); Osmolality,Calculated 286 (280-300); Potassium 3.5 mEq/L (3.5-5.1); Sodium 137 mEq/L (136-145); eGFR For Non-African Americans > 60 (> 60)
[2018-06-29] MEDS: *HR* Enoxaparin 40 MG/0.4 ML SYRINGE SQ SCH (05:13)
[2018-06-29] MEDS: Ondansetron 4 MG/2 ML VIAL IVP SCH ×3 (05:22→11:18)
[2018-06-29] MEDS: Pantoprazole 40 MG VIAL IVP SCH (09:00)
[2018-06-29 14:58] VITALS: BP 135/76
--- NOTE | 2018-06-29 15:42 | Discharge Summary ---
Date of Encounter: 06/29/18 Time of Encounter: 15:35 - Discharge Diagnosis (1) Ileus, unspecified Priority: Primary Status: Acute (2) Alcohol use disorder Priority: Secondary Status: Acute (3) Diabetes mellitus type 2 in obese Priority: Secondary Status: Acute (4) DVT prophylaxis Priority: Secondary Status: Acute (5) Suspected sleep apnea Priority: Secondary Status: Acute Hospital course: Mr. Rasheed is a 63 year old male has medical history of morbid obesity, type 2 diabetes, BPH was admitted for nausea vomiting. CT abdomen demonstrated fluid and gas filled loops suspicious of ileus and antritis. He should not had NG tube placed under suction and started on Cipro and Flagyl for antritis. Patient did have a bowel movement and was passing gas. Patient improved over next day. NG tube was removed the next day and patient regressed on diet. Patient tolerated regular diet today. Currently asymptomatic and wants to go home. We will discharge patient home on his home medication and 2 more days of ciprofloxacin and Flagyl to finish 5 day course. Discharge discussed with: patient, family, nurse - Time Spent with Patient Total time spent providing and/or coordinating discharge services: Greater than 30 minutes (40) - Discharge Medications Prescriptions: Ciprofloxacin [Cipro] 500 mg PO DAILY 2 Days #2 tablet metroNIDAZOLE [Metronidazole] 500 mg PO TID 2 Days #6 tablet Home Medications: Alfuzosin HCl [Uroxatral] 10 mg PO ONCE 01/02/18 [History] Alogliptin Benzoate [Alogliptin] 25 mg PO ONCE 01/02/18 [History] Aspirin 325 mg PO DAILY 01/02/18 [History] Atorvastatin Calcium [Lipitor] 20 mg PO ONCE 01/02/18 [History] Enalapril Maleate [Vasotec] 10 mg PO ONCE 01/02/18 [History] Tamsulosin HCl [Flomax] 0.4 mg PO ONCE 01/02/18 [History] raNITIdine HCl [Ranitidine HCl] 300 mg PO BID 01/02/18 [History] Insulin Degludec [Tresiba Flextouch U-200] 90 unit SQ BID 06/27/18 [History] Montelukast [Singulair] 10 mg PO DAILY 06/27/18 [History] glipiZIDE [Glipizide] 10 mg PO BID 06/27/18 [History] Ciprofloxacin [Cipro] 500 mg PO DAILY 2 Days #2 tablet 06/29/18 [Rx] metroNIDAZOLE [Metronidazole] 500 mg PO TID 2 Days #6 tablet 06/29/18 [Rx] Allergies/Adverse Reactions: Allergy/AdvReac Type Severity Reaction Status Date / Time No Known Allergies Allergy Verified 06/27/18 10:24 Date of admission: 06/27/18 10:30 Primary care physician: PCP NONE Consults: 06/29/18 15:33 Consult to Interventional Radiology [CONS] Routine Consulting Provider: Radiology Interventional Cols Reason for Consult: dignositic and therapeutic thorocentesis Call Completed: Yes Discharging clinician: Jarrett Son - Constitutional Vitals: Temp Pulse Resp BP Pulse Ox 97.9 F 63 16 135/76 97 06/29/18 14:57 06/29/18 14:57 06/29/18 14:57 06/29/18 14:57 06/29/18 14:57 Exam: General: In no acute distress. Conversant. Obese. NGT in place Respiratory exam: CTAB. no accessory muscle use, rales, rhonchi, wheezes Cardiovascular exam: RRR, +S1, +S2. no murmur, gallop, rubs. GI/Abdominal exam: Obese, Non-distended, Non-tender normal bowel sounds, soft, no peritoneal signs. Extremities exam: full ROM, no pedal edema, warm, pulses palpable in b/l lower extremities. no calf tenderness Neurological exam: CN II-XII intact, AO X3, no focal deficits. no pronater drift, facial droop, speech deficit Skin exam: No skin rash, ulcer, purpura or ecchymosis. - Patient Status Disposition: Home, Self-Care Condition: Fair - Discharge Instructions Follow Up With: NONE,PCP [Primary Care Provider] - - Diet and Activity Activity: increase activity as tolerated
== END 2018-06-29 16:24 | disposition home or self-care (01) ==
LOC: EMEROOARM 07:18 → 3ANU 07:18 → SUATTDRO 10:30 → 3ANU 10:52
PROVIDERS: ADMIT Internal Medicine; ATTEND Internal Medicine